=== PATIENT | male | born 1990 | race Caucasian/White ===

== ENCOUNTER 2021-04-08 18:13 | Emergency (ER) | payer OTHER, SELFPAY ==
[2021-04-08 18:17] VITALS: BP 132/66; PULSE 97; RESP 18; TEMP 36.2; O2SAT 99
[2021-04-08 19:03] VITALS: BP 117/77; PULSE 88; RESP 18; O2SAT 100
--- NOTE | 2021-04-08 19:12 | ED.GENADULT ---
HPI - General Adult General Chief complaint: Wound/Laceration Stated complaint: laceration finger Time Seen by Provider: 04/08/21 19:06 Source: patient and RN notes reviewed Mode of arrival: ambulatory Limitations: no limitations History of Present Illness HPI narrative: Patient is a 30-year-old male who presents to emergency department for evaluation of laceration of the right thumb patient was using a razor knife when he lacerated the dorsal surface of the right thumb patient notes his tetanus is up-to-date notes mild aching pain worse with palpation and movement denies any paresthesias or any loss of range of motion or strength Related Data Allergies Allergy/AdvReac Type Severity Reaction Status Date / Time No Known Allergies Allergy Mild Unverified 10/18/15 11:59 Review of Systems Review of Systems: All systems reviewed & are unremarkable except as noted in HPI and below PMFSH Social History Social History (Updated 04/08/21 @ 19:13 by Peter Hays PA-C) Smoking status: Never smoker Exam Narrative: Exam Narrative: GENERAL: Well-appearing, well-nourished, and in no acute distress. HEAD: Normocephalic, atraumatic. EYES: PERRLA and EOMI. ENT: Nares clear, no rhinorrhea or epistaxis. Mucous membranes moist. EXTREMITIES: Normal range of motion. No edema. 1 cm linear laceration across the dorsal surface of the proximal phalanx of the right thumb SKIN: Warm, dry, no rash. NEURO: No focal deficits. Alert and oriented x3. Neurovascularly intact. Normal range of motion and strength PSYCH: Normal mood and affect. Course Course Emergency Course: Laceration repaired in the emergency department provided with follow-up instructions agreeing with the plan Vital Signs Vital signs: Vital Signs Temperature 97.2 F L 04/08/21 18:17 Pulse Rate 97 04/08/21 18:17 Respiratory Rate 18 04/08/21 18:17 Blood Pressure 132/66 04/08/21 18:17 Pulse Oximetry 99 04/08/21 18:17 Temperature 97.2 F L 04/08/21 18:17 Pulse Rate 88 04/08/21 19:03 Respiratory Rate 18 04/08/21 19:03 Blood Pressure 117/77 04/08/21 19:03 Pulse Oximetry 100 04/08/21 19:03 Procedures Laceration Laceration 1: Date: 04/08/21 Site: upper extremity Side (If applicable): right Size (cm): 1 Description: linear Depth: simple, single layer Local Anesthetic: lidocaine 1% Pre-repair: wound explored, irrigated and irrigated extensively ====== Skin Level ====== Skin layer closed with: nylon Size (cm): 5-0 Number of sutures: 3 ====== Subcutaneous Layer ====== ====== Muscle Layer ====== ====== Tendon Layer ====== Medical Decision Making MDM Narrative Medical decision making narrative: Patients injury or pain is consistent with musculoskeletal etiology. No signs of neurological or vascular compromise on exam. Compartments and tisues are soft without signs of compartment syndrome. Pain is felt appropriate for further evaluation on an outpatient basis. Vital Signs Vital Signs: Vital Signs Temperature 97.2 F L 04/08/21 18:17 Pulse Rate 97 04/08/21 18:17 Respiratory Rate 18 04/08/21 18:17 Blood Pressure 132/66 04/08/21 18:17 Pulse Oximetry 99 04/08/21 18:17 Temperature 97.2 F L 04/08/21 18:17 Pulse Rate 88 04/08/21 19:03 Respiratory Rate 18 04/08/21 19:03 Blood Pressure 117/77 04/08/21 19:03 Pulse Oximetry 100 04/08/21 19:03 Discharge Plan Discharge Clinical Impression: Laceration Patient Disposition: Home, Self-Care Condition: Stable Instructions: Antibiotic Form, Laceration (ED) Additional Instructions: Keep wound clean and dry. Do not soak, take baths, or swim until wound is completely healed. If any signs of infection such as redness, swelling, increasing pain, drainage of purulent discharge, streaks up your extremity develop, seek medical attention immediately. Followup with y
[2021-04-08 20:19] VITALS: BP 126/68; PULSE 90; RESP 16; O2SAT 100
== END 2021-04-08 20:20 | disposition home or self-care (01) ==
LOC: ANHED 19:44
PROVIDERS: Emergency Provider Emergency Medicine
DX: S61.011A Laceration without foreign body of right thumb without damage to nail, initial encounter (principal); W26.0XXA Contact with knife, initial encounter
CPT/HCPCS: 12001; 99282

== ENCOUNTER 2021-06-01 14:39 | Emergency (ER) | payer OTHER, SELFPAY ==
--- NOTE | ~2021-06-01 | XR_ITS ---
EXAMINATION: XR finger 3rd LT min 2V DATE: 06/01/2021 15:28 INDICATION: Laceration to the distal phalanx of the left third digit TECHNIQUE: Dorsal palmar, lateral and 2 oblique views of the left third digit were obtained COMPARISON: None FINDINGS: Oblique extra-articular fracture across the midportion of the left third distal phalanx with 15 degre e palmar angulation. There is soft tissue swelling and skin laceration at the overlying soft tissues at the radial aspect of the distal phalanx suggesting this represents an open/compound fracture. No o ther fractures identified. No radiopaque foreign bodies. Joint spaces are normal. IMPRESSION: 1. 15 degrees palmar angulation of a likely open/compound oblique fracture across the midportion of t he left third distal phalanx. Reviewed, dictated and finalized at location A. IMPRESSION: 1. 15 degrees palmar angulation of a likely open/compound oblique fracture acro ss the midportion of the left third distal phalanx.
[2021-06-01 14:54] VITALS: BP 129/77; PULSE 99; RESP 20; TEMP 36.8; O2SAT 100
--- NOTE | 2021-06-01 15:21 | ED.GENADULT ---
HPI - General Adult General Chief complaint: Wound/Laceration Stated complaint: L 3RD DIGIT INJURY Time Seen by Provider: 06/01/21 15:04 Source: patient and RN notes reviewed Mode of arrival: ambulatory Limitations: no limitations History of Present Illness HPI narrative: Patient is a 30-year-old male who presents to emergency department status post left middle finger injury patient was using a hedge tremor when he injured the finger the distal tip is involved to include injury to the nailbed patient notes moderate aching pain notes that his tetanus is up-to-date has no other injuries or complaints has not taken anything for his symptoms presents per private vehicle nondistressed Related Data Home Medications Medication Instructions Recorded Confirmed methadone 240 mg PO DAILY 06/01/21 Allergies Allergy/AdvReac Type Severity Reaction Status Date / Time No Known Allergies Allergy Mild Verified 06/01/21 15:01 Review of Systems Review of Systems: All systems reviewed & are unremarkable except as noted in HPI and below PMFSH Social History Social History Smoking status: Never smoker Gender identity (if verbalized by the patient): Male Exam Narrative: GENERAL: Well-appearing, well-nourished, and in no acute distress. HEAD: Normocephalic, atraumatic. EYES: PERRLA and EOMI. ENT: Nares clear, no rhinorrhea or epistaxis. Mucous membranes moist. CHEST: Clear to auscultation. No respiratory distress. No wheezes rales or rhonchi HEART: Regular rate and rhythm. No murmur heard. EXTREMITIES: Normal range of motion. No edema. SKIN: Warm, dry, no rash. Laceration to the distal phalanx to include the nailbed of the right middle finger NEURO: No focal deficits. Alert and oriented x3. Neurovascularly intact PSYCH: Normal mood and affect. Course Course Emergency Course: Patient was evaluated in the emergency department was found to have open fracture laceration of the finger finger was repaired in the emergency department he will follow with hand surgery he was given antibiotic in the emergency department will be sent home on oral antibiotics and pain medication patient is afebrile nontoxic-appearing no distress felt appropriate for outpatient reevaluation given strict reasons to return Consultations Consultation #1: Case discussed with hand surgeon who will follow the patient in clinic Date: 06/01/21 Time: 18:07 Vital Signs Vital signs: Vital Signs Temperature 98.2 F 06/01/21 14:54 Pulse Rate 99 06/01/21 14:54 Respiratory Rate 20 06/01/21 14:54 Blood Pressure 129/77 06/01/21 14:54 Pulse Oximetry 100 06/01/21 14:54 Temperature 98.2 F 06/01/21 14:54 Pulse Rate 99 06/01/21 14:54 Respiratory Rate 20 06/01/21 14:54 Blood Pressure 129/77 06/01/21 14:54 Pulse Oximetry 100 06/01/21 14:54 Procedures Laceration Laceration 1: Date: 06/01/21 Time: 17:57 Site: upper extremity Side (If applicable): left Size (cm): 2 Description: linear Depth: simple, single layer Local Anesthetic: lidocaine 2% Pre-repair: wound explored, irrigated and irrigated extensively ====== Skin Level ====== Skin layer closed with: nylon Size (cm): 4-0 and 5-0 Number of sutures: 5 ====== Subcutaneous Layer ====== ====== Muscle Layer ====== ====== Tendon Layer ====== Dressing: Patient's nailbed was aligned and repaired with 4-0 nylon the remainder of the laceration was repaired with 5-0 nylon suture 5 total neurovascularly intact pre and post procedure antibiotic ointment nonadhesive 4 x 4 and Coban applied post procedure Patient's wound was anesthetized with 1% lidocaine digital block wound was explored and copiously irrigated and scrubbed with [employer] scrub Medical Decision Making MDM Narrative Medical decision making narrative: Patients injury or
[2021-06-01] MEDS: HYDROcodone/acetaminophen (*CRX) 5-325 MG TABLET 1 TAB PO (15:31)
[2021-06-01] MEDS: LORazepam (*CRX) 1 MG TABLET PO (15:31)
[2021-06-01] MEDS: ceFAZolin SODIUM 1 GM VIAL IM (15:32)
[2021-06-01] MEDS: WATER, STERILE FOR INJECTION 10 ML VIAL XX (15:36)
--- NOTE | 2021-06-01 16:18 | PC.NURSE ---
Addendum entered by Britta Chun RN 06/01/21 16:20: This note was to have been charted at 1530, not 1620. Original Note: attempted x 3 for IV access on pt. Pt reports being hard stick d/t hx of former IV drug abuse. EDP made aware - medication administration route modified.
[2021-06-01 18:00] VITALS: BP 130/77; PULSE 88; RESP 16; O2SAT 100
== END 2021-06-01 18:27 | disposition home or self-care (01) ==
PROVIDERS: Emergency Provider Emergency Medicine
DX: S62.633B Displaced fracture of distal phalanx of left middle finger, initial encounter for open fracture (principal); W29.3XXA Contact with powered garden and outdoor hand tools and machinery, initial encounter
CPT/HCPCS: 11760; 12001; 73140; 96372; 99283; A9270; J0690

== ENCOUNTER 2021-11-04 15:06 | Emergency (ER) | payer OTHER, SELFPAY ==
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
--- NOTE | ~2021-11-04 | XR_ITS ---
EXAMINATION: XR forearm LT 2V DATE: 11/04/2021 18:17 INDICATION: Left forearm injury and swelling. TECHNIQUE: 2 views of left forearm on 3 radiographs were obtained. COMPARISON: None. FINDINGS: Bone alignment is normal. No fracture. Joint spaces are well maintained. There is no elbow joint effusion. There is forearm soft tissue swelling. IMPRESSION: 1. No fracture. Reviewed, dictated and finalized at location A. OR SALES DIRECTOR IMPRESSION: 1. No fracture.
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
[2021-11-04 15:21] VITALS: BP 127/71; PULSE 90; RESP 19; TEMP 36.7; O2SAT 100
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
[2021-11-04] MEDS: HYDROcodone/acetaminophen (*CRX) 5-325 MG TABLET 1 TAB PO (17:32)
[2021-11-04] MEDS: diazePAM (*CRX) 5 MG TABLET PO (17:35)
[2021-11-04 19:43] VITALS: BP 113/77; PULSE 69; RESP 16; O2SAT 97
== END 2021-11-04 19:43 | disposition home or self-care (01) ==
LOC: ANHED 16:55
PROVIDERS: Emergency Provider Family Medicine
DX: S02.2XXA Fracture of nasal bones, initial encounter for closed fracture (principal); S20.219A Contusion of unspecified front wall of thorax, initial encounter; S50.12XA Contusion of left forearm, initial encounter; Y00.XXXA Assault by blunt object, initial encounter
CPT/HCPCS: 70486; 73000; 73090; 99284; A9270

== ENCOUNTER 2023-10-03 18:53 | Emergency (ER) | payer OTHER, SELFPAY ==
--- NOTE | ~2023-10-03 | US_ITS ---
EXAMINATION: US venous doppler UE DATE: 10/03/2023 22:41 INDICATION: Pain and swelling TECHNIQUE: Lew scale images with and without compression and Doppler images of the left upper extrem ity veins were obtained. COMPARISON: None. FINDINGS: The left internal jugular vein, subclavian vein, axillary vein, brachial veins, basilic vein, cephali c vein, radial vein, and ulnar vein are patent. In the anterior arm above the elbow there is a comple x fluid collection measuring 5.3 x 5 x 2.5 cm. IMPRESSION: 1. Patent left upper extremity veins. No evidence of deep venous thrombosis. 2: Complex fluid collection anterior soft tissues above the elbow measuring up to 5.3 cm which may re present hematoma/seroma, although infection/abscess is not excluded. Reviewed, dictated and finalized at location A. ENGINE OPERATOR COMPRESSORS IMPRESSION: 1. Patent left upper extremity veins. No evidence of deep venous thrombosis. 2: Complex fluid collection anterior soft tissues above the elbow measuring up to 5.3 cm which may represent hematoma/seroma, although infection/abscess is no t excluded.
[2023-10-03 18:54] VITALS: BP 105/53; PULSE 78; RESP 18; TEMP 36.3; O2SAT 100
--- NOTE | 2023-10-04 | ED.GENADULT ---
HPI - General Adult General Chief complaint: Extremity Injury, Upper Stated complaint: swollen arm Time Seen by Provider: 10/03/23 21:47 History of Present Illness HPI narrative: patient 33-year-old gentleman who presents emergency department with chief complaint of abscess in the left upper extremity. The patient reports that he had decided to inject fentanyl intermuscular and notice that the needle was been after he removed the needle the patient states that afterwards he started developing redness and swelling in his left upper extremity Related Data Home Medications Medication Instructions Recorded Confirmed methadone 10 mg tablet 240 mg PO DAILY 06/01/21 Allergies Allergy/AdvReac Type Severity Reaction Status Date / Time No Known Allergies Allergy Mild Verified 06/01/21 15:01 Review of Systems Review of Systems: A 10 system review of systems was completed on the patient and is negative except for what is stated in the HPI. Nursing and ancillary documentation was reviewed. [facility] Social History Social History Smoking status: Never smoker Gender identity (if verbalized by the patient): Male Exam Narrative: GENERAL: Well-appearing, well-nourished, and in no acute distress. HEAD: Normocephalic, atraumatic. EYES: PERRLA and EOMI. ENT: Nares clear, no rhinorrhea or epistaxis. Mucous membranes moist. NECK: Supple. CHEST: Clear to auscultation. No respiratory distress. HEART: Regular rate and rhythm. No murmur heard. Normal peripheral pulses. ABDOMEN: Soft, nontender, nondistended, normal active bowel sounds. EXTREMITIES: Normal range of motion there is swelling present in the left bicep region redness of the skin. No edema. SKIN: Warm, dry, no rash. there is redness and swelling of the left biceps region NEURO: No focal deficits. Alert and oriented x3. PSYCH: Normal mood and affect. Course Vital Signs Vital signs: Vital Signs Temperature 36.3 C L 10/03/23 18:54 Pulse Rate 78 10/03/23 18:54 Respiratory Rate 18 10/03/23 18:54 Blood Pressure 105/53 L 10/03/23 18:54 Pulse Oximetry 100 10/03/23 18:54 Oxygen Delivery Room Air 10/03/23 18:54 Temperature 36.3 C L 10/03/23 18:54 Pulse Rate 78 10/03/23 18:54 Respiratory Rate 18 10/03/23 18:54 Blood Pressure 105/53 L 10/03/23 18:54 Pulse Oximetry 100 10/03/23 18:54 Oxygen Delivery Room Air 10/03/23 18:54 Procedures Abscess I/D upper extremity: Date of Incision: 10/04/23 Time of Incision: 00:07 Side (if applicable): left Sedation/analgesia: none Local Anesthetic: lidocaine 1% and with epi Amount of anesthesia used (mL): 5 Amount of fluid expressed (mL): 20 Irrigation: No Packing used?: iodoform I&D Results: Pus Medical Decision Making MDM Narrative Medical decision making narrative: differential diagnosis includes cellulitis, abscess, ultrasound of the left upper extremity showed no evidence of DVT but did show a 5 x 5 cm abscess. It was discussed with the patient incision and drainage the area was numbed with 1% lidocaine with epi and the area was incised with an 11 blade a copious amount of purulent material was expressed from the wound and it was packed with quarter-inch iodoform dressing Vital Signs Vital Signs: Vital Signs Temperature 36.3 C L 10/03/23 18:54 Pulse Rate 78 10/03/23 18:54 Respiratory Rate 18 10/03/23 18:54 Blood Pressure 105/53 L 10/03/23 18:54 Pulse Oximetry 100 10/03/23 18:54 Oxygen Delivery Room Air 10/03/23 18:54 Temperature 36.3 C L 10/03/23 18:54 Pulse Rate 78 10/03/23 18:54 Respiratory Rate 18 10/03/23 18:54 Blood Pressure 105/53 L 10/03/23 18:54 Pulse Oximetry 100 10/03/23 18:54 Oxygen Delivery Room Air 10/03/23 18:54 Discharge Plan Discharge Clinical Impression: Abscess of arm,
[2023-10-04] MEDS: CEPHALEXIN 500 MG CAPSULE PO (00:21)
[2023-10-04] MEDS: DOXYCYCLINE HYCLATE 100 MG TABLET PO (00:21)
[2023-10-04] MEDS: oxyCODONE/ACETAMINOPHEN (*CRX) 5-325 MG TABLET 1 TABLET PO (00:22)
[2023-10-04 00:44] VITALS: BP 144/74; PULSE 89; RESP 16; O2SAT 100
== END 2023-10-04 00:45 | disposition home or self-care (01) ==
PROVIDERS: Emergency Provider Emergency Medicine
DX: L02.414 Cutaneous abscess of left upper limb (principal)
CPT/HCPCS: 10061; 93971; 99284; A9270